=== PATIENT | male | born 1955 | race Caucasian/White ===

== ENCOUNTER 2018-07-29 16:07 | Emergency (ER) | payer OTHER ==
[2018-07-29] MEDS ORDERED: Ketorolac Tromethamine 30 MG/ML VIAL ONE (16:45)
--- NOTE | 2018-07-29 17:55 | RAD ---
RIGHT FOOT 3 VIEWS: Date: 07/29/18 No acute fracture was identified. 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 This consists of joint space narrowing, osteophytes, and bony sclerosis. There is some bony over growth of the sesamoid bones of the flexor hallucis brevis. Some bony spurring is seen in the tarsome tatarsal joints. There may be old trauma to the distal phalanx of the great toe. All other bones appear intact. IMPRESSION: 1. No acute findings. 2. Degenerative changes, particularly severe in the first MTP joint. POS: HOME
== END 2018-07-29 17:08 | disposition home or self-care (01) ==
LOC: BURERS 16:07
DX: S90.31XA Contusion of right foot, initial encounter (principal); E78.5 Hyperlipidemia, unspecified; I10 Essential (primary) hypertension; F17.200 Nicotine dependence, unspecified, uncomplicated; W22.8XXA Striking against or struck by other objects, initial encounter
CPT/HCPCS: 96374; J1885